=== PATIENT | male | born 1995 | race African-American/Black ===

== ENCOUNTER 2017-05-07 12:35 | Day surgery (SDC) | payer BC ==
[~2017-05-07] VITALS: Ht 193 cm; Wt 96.5 kg
[~2017-05-07 12:35] MED LIST: BUPIVACAINE/PF 0.5% ONE; LIDOCAINE 1%, 20ML ONE
[2017-05-07 13:12] VITALS: BP 122/78
[2017-05-07] MEDS ORDERED: LIDOCAINE 1%, 2ML ONE (13:28)
[2017-05-07] MEDS ORDERED: LACTATED RINGERS 1,000 ML IV SCH (13:47)
[2017-05-07] MEDS ORDERED: LIDOCAINE 1%, 2ML SQ PRN (14:00)
[2017-05-07] MEDS ORDERED: MIDAZOLAM 1 MG/ML, 2ML ONE (14:01)
[2017-05-07] MEDS ORDERED: LIDOCAINE-MPF 2% ,5ML ONE (14:01)
[2017-05-07] MEDS ORDERED: FENTANYL PF 100 MCG/2ML ONE (14:01)
[2017-05-07] MEDS ORDERED: PROPOFOL 10 MG/ML, 20ML ONE (14:01)
[2017-05-07] MEDS ORDERED: ONDANSETRON 2MG/ML, 2ML ONE ×2 (14:04)
[2017-05-07] MEDS ORDERED: DEXAMETHASONE 4 MG/ML, 1ML ONE ×2 (14:04)
[2017-05-07] MEDS ORDERED: CEFAZOLIN 1,000 MG ONE (14:28)
[2017-05-07] MEDS ORDERED: KETAMINE 10 MG/ML, 20ML ONE (14:51)
[2017-05-07] MEDS ORDERED: HYDROmorphone 2 MG/ML, 1ML ONE (14:52)
[2017-05-07] MEDS ORDERED: KETOROLAC 30 MG/1 ML ONE (15:11)
[2017-05-07] MEDS ORDERED: hydrALAzine 20 MG/ML, 1ML IV PRN (15:30)
[2017-05-07] MEDS ORDERED: FENTANYL PF 100 MCG/2ML IV PRN (15:30)
[2017-05-07] MEDS ORDERED: LABETALOL 5MG/ML, 20ML IV PRN (15:30)
[2017-05-07] MEDS ORDERED: ONDANSETRON 2MG/ML, 2ML IVPush PRN (15:30)
[2017-05-07] MEDS ORDERED: OXYcodone 5 MG/5 ML ORAL.SOL UDC PO PRN (15:30)
[2017-05-07] MEDS ORDERED: MEPERIDINE/PF 25MG/0.5ML IVPush PRN (15:30)
[2017-05-07] MEDS ORDERED: ACETAMINOPHEN 325 MG TABLET PO PRN (15:30)
[2017-05-07] MEDS ORDERED: PROMETHAZINE 12.5 MG SUPP PR PRN (15:30)
[2017-05-07] MEDS ORDERED: HYDROmorphone 1 MG/ML, 1ML IV PRN (15:30)
== END 2017-05-07 17:25 | disposition home or self-care (01) ==
LOC: OUT 12:35
PROVIDERS: ATTEND Orthopaedic Surgery Foot and Ankle Surgery
DX: S92.352K Displaced fracture of fifth metatarsal bone, left foot, subsequent encounter for fracture with nonunion (principal); X58.XXXD Exposure to other specified factors, subsequent encounter; I10 Essential (primary) hypertension
CPT/HCPCS: 28322; 73630; 76000; C1713; C1769; J0690; J1100; J1170; J1885; J2250; J2405; J2704; J3010; J3490; J7120